=== PATIENT | male | born 1970 | race Caucasian/White ===

== ENCOUNTER 2021-07-10 22:36 | Emergency (ER) | payer MEDICARE ==
[~2021-07-10] VITALS: Ht 170.2 cm; Wt 80.9 kg
[2021-07-10 22:46] VITALS: TEMP 98.5
[2021-07-10] MEDS ORDERED: BACTRIM DS 8001 TAB PO (23:52)
[2021-07-11 00:06] VITALS: BP 232/121; PULSE 87
== END 2021-07-11 00:06 | disposition home or self-care (01) ==
LOC: COL.ER 22:36
DX: L60.0 Ingrowing nail (principal); L03.031 Cellulitis of right toe; I10 Essential (primary) hypertension
CPT/HCPCS: J0696

== ENCOUNTER 2021-08-18 12:22 | Emergency (ER) | payer MEDICARE ==
[~2021-08-18] VITALS: Ht 170.2 cm; Wt 82.3 kg
[~2021-08-18 12:22] MED LIST: BACTRIM DS 8001 TAB PO
[2021-08-18 13:16] LABS: BASO # 0.1 K/mm3 (0.0-0.2); BASO % 0.8 % (0.0-2.0); EOS # 0.1 K/mm3 (0.0-0.7); EOS % 1.1 % (0.0-4.0); GRAN # 6.2 K/mm3 (1.4-6.5); GRAN % 71.3 % (42.2-75.2); HEMATOCRIT 45.9 % (42.0-52.0); HEMOGLOBIN 15.1 g/dl (13.5-18.0); LYMPH # 1.9 K/mm3 (1.2-3.4); LYMPH % 21.7 % (20.0-51.0); MEAN CELL VOLUME 79 fl (80.0-100.0); MEAN CORPUSCULAR HEMOGLOBIN 26 pg (27-31); MEAN CORPUSCULAR HGB CONC 33 g/dl (33.0-37.0); MONO # 0.4 K/mm3 (0.1-0.6); MONO % 4.8 % (1.7-9.3); PLATELET COUNT 313 K/mm3 (130-400); RED BLOOD COUNT 5.82 M/mm3 (4.20-5.60); REDCELL DISTRIBUTION WIDTH-CV 13.7 % (11.5-14.5)
[2021-08-18 13:22] LABS: BILIRUBIN,TOTAL 0.4 mg/dL (0.2-1.2); CALCIUM 8.8 mg/dL (8.4-10.2); CREATININE, serum 1.09 mg/dL (0.72-1.25); POTASSIUM 4.3 mmol/L (3.5-4.5); TOTAL PROTEIN 7.5 gm/dL (6.2-8.1)
[2021-08-18] MEDS ORDERED: REGLAN 10MG10 MG/TAB PO (14:25)
[2021-08-18 14:34] VITALS: BP 148/96; PULSE 90; TEMP 98.6
== END 2021-08-18 14:34 | disposition home or self-care (01) ==
LOC: COL.ER 12:22
PROVIDERS: Emergency Medicine
DX: R11.2 Nausea with vomiting, unspecified (principal); Z90.49 Acquired absence of other specified parts of digestive tract
CPT/HCPCS: J2405; J2765; J7030

== ENCOUNTER 2021-09-11 18:27 | Emergency (ER) | payer MEDICARE ==
[~2021-09-11] VITALS: Ht 170.2 cm; Wt 86.4 kg
[~2021-09-11 18:27] MED LIST changes: +REGLAN 10MG10 MG/TAB PO
[2021-09-11 18:37] VITALS: TEMP 98.4
[2021-09-11] MEDS ORDERED: LYRICA 100MG C100 M1 PO (18:54)
[2021-09-11] MEDS ORDERED: COZAAR 25MG25 MG/TAB PO (18:54)
[2021-09-11] MEDS ORDERED: ULTRAM 50MG TAB50 MG PO (18:54)
[2021-09-11] MEDS ORDERED: LIPITOR 10MG10 MG PO (18:55)
[2021-09-11] MEDS ORDERED: TOUJEO300 U/ML SQ (18:55)
[2021-09-11] MEDS ORDERED: DESYREL DIVIDO150 M1 PO (18:55)
[2021-09-11] MEDS ORDERED: FARXIGA10 PO (18:55)
[2021-09-11 20:43] VITALS: BP 150/94; PULSE 78
--- NOTE | 2021-09-12 08:36 | NUR ---
Attempted to call patient this AM and left message. He was to be here at 0730 for an 0830 appt for food bolus removal. Dr. Winchestert aware of patients non-arrival.
== END 2021-09-11 21:19 | disposition home or self-care (01) ==
LOC: COL.ER 18:27
DX: T18.128A Food in esophagus causing other injury, initial encounter (principal); Z90.49 Acquired absence of other specified parts of digestive tract
CPT/HCPCS: J3360; J7030

== ENCOUNTER → 2021-09-16 | Day surgery (SDC) | payer MEDICARE ==
[~2021-09-16] MED LIST changes: +COZAAR 25MG25 MG/TAB PO; +DESYREL DIVIDO150 M1 PO; +FARXIGA10 PO; +LIPITOR 10MG10 MG PO; +LYRICA 100MG C100 M1 PO; +NOVOLOG FLEX100 U/ML SQ; +PHENERGAN 25 TA25 MG PO; +TOUJEO300 U/ML SQ; +ULTRAM 50MG TAB50 MG PO
--- NOTE | 2021-09-16 08:19 | NUR ---
Patient's blood sugar reading is 370. His blood pressure reads 188/114, then 185/107. He took his full dose of insulin glargine (70 units) this AM, and last had his daily 25 mg cozaar yesterday AM. This information is relayed to Dr. Villa and Cortez Higuera CRNA. They give the verbal order that the patient's procedure will need to be rescheduled. The patient is notified. He expresses frustration, but is understanding. He is waiting to talk with Dr. Villa between cases.
--- NOTE | 2021-09-16 08:54 | NUR ---
Dr. Villa speaks with the patient and he is rescheduled for Tuesday AM. He is discharged at this time.
== END ==
LOC: SDCO 07:50
DX: R13.10 Dysphagia, unspecified (principal); T18.128A Food in esophagus causing other injury, initial encounter; Z53.8 Procedure and treatment not carried out for other reasons
CPT/HCPCS: J2704

== ENCOUNTER 2021-09-18 05:49 | Day surgery (SDC) | payer MEDICARE ==
--- NOTE | 2021-09-16 08:45 | NUR ---
Dr. Villa comes and speaks with the patient at this time.
[~2021-09-18] VITALS: Ht 170.2 cm; Wt 82.3 kg
[~2021-09-18 05:49] MED LIST changes: -NOVOLOG FLEX100 U/ML SQ; -PHENERGAN 25 TA25 MG PO
[2021-09-18 07:20] VITALS: BP 95/60; PULSE 73; TEMP 97.1
--- NOTE | 2021-09-18 07:20 | NUR ---
PATIENT RETURNED TO ROOM 1 VIA CART. ASSISTED TO CHAIR X 2 WITH MINIMAL DIFFICULTY. VITAL SIGNS WNL, HIS 02 SAT IS 92%, HAND OFF NURSE SAID HE WAS AT 94% DURING THE PROCEDURE. HE IS DIABETIC, GLUCOSE IS 87 WHICH IS VERY LOW FOR HIM. HE REQUESTS ORANGE JUICE AND JELLO. FRIEND AT BEDSIDE. WILL CONTINUE TO MONITOR.
[2021-09-18 07:35] VITALS: BP 109/70; PULSE 83
--- NOTE | 2021-09-18 07:35 | NUR ---
PATIENT IS MUCH MORE AWAKE. DOCTOR IS FINISHING UP AT BEDSIDE. VITAL SIGNS HAVE IMPROVED, O2 SAT IS BACK TO BASELINE AT 94%. PATIENT TOLERATED OJ AND JELLO WELL, HE DENIES ANY NAUSEA. WILL CONTINUE TO MONITOR.
[2021-09-18 07:50] VITALS: BP 111/76; PULSE 83
--- NOTE | 2021-09-18 07:50 | NUR ---
PATIENT STATES HE IS READY FOR DISCHARGE. VITAL SIGNS ARE WNL. 02 SAT INCREASED TO 96%. IV DISCONTINUED AT 0745 AND PATIENT IS GETTING DRESSED. FRIEND AT BEDSIDE. DISCHARGE INSTRUCTIONS REVIEWED AND PATIENT EDUCATION GIVEN. WILL CONTINUE TO MONITOR UNTIL DISCHARGE.
[2021-09-18 16:00] VITALS: BP 144/84; PULSE 88; TEMP 96.9
== END 2021-09-18 07:54 | disposition home or self-care (01) ==
LOC: SDCO 05:49
DX: K22.2 Esophageal obstruction (principal); R13.10 Dysphagia, unspecified

== ENCOUNTER → 2021-09-22 | Outpatient (CLI) | payer MEDICARE ==
[~2021-09-22] MED LIST changes: +NOVOLOG FLEX100 U/ML SQ; +PHENERGAN 25 TA25 MG PO
== END ==
LOC: COL.VAS 09-18 10:00
DX: M79.662 Pain in left lower leg (principal)

== ENCOUNTER → 2021-09-23 | Outpatient (CLI) | payer MEDICARE | LOC: COL.RAD 08:20 | DX: K22.2 Esophageal obstruction (principal); T18.128D Food in esophagus causing other injury, subsequent encounter ==

== ENCOUNTER 2021-10-02 10:37 | Day surgery (SDC) | payer MEDICARE ==
[~2021-10-02] VITALS: Ht 170.2 cm; Wt 80.8 kg
[~2021-10-02 10:37] MED LIST changes: -NOVOLOG FLEX100 U/ML SQ; -PHENERGAN 25 TA25 MG PO
[2021-10-02 12:29] VITALS: BP 132/96; PULSE 86; TEMP 97.6
[2021-10-02 14:25] VITALS: BP 95/80; PULSE 84; TEMP 98.5
--- NOTE | 2021-10-02 14:25 | NUR ---
PATIENT TO ROOM 8 VIA CART. ASSIST TO CHAIR X 1. VITAL SIGNS WNL. PATIENT IS C/O SOME NAUSEA, BUT HE WAS NAUSEATED BEFORE THE PROCEDURE WELL. WILL CONTINUE TO MONITOR.
[2021-10-02] MEDS ORDERED: PHENERGAN 25 TA25 MG PO (14:28)
[2021-10-02] MEDS ORDERED: NOVOLOG FLEX100 U/ML SQ (14:29)
--- NOTE | 2021-10-02 14:45 | NUR ---
PATIENT IS AWAKE AND ORIENTED. TOLERATED EATING AND DRINKING WELL. VITAL SIGNS WNL. WAITING FOR DOCTOR TO SPEAK WITH PATIENT. WILL CONTINUE TO MONITOR.
[2021-10-02 14:50] VITALS: BP 136/92; PULSE 103
[2021-10-02 15:05] VITALS: BP 138/94; PULSE 85
--- NOTE | 2021-10-02 15:05 | NUR ---
PATIENT IS READY FOR DISCHARGE. IV REMOVED. VITAL SIGNS WNL. WAITING FOR DOCTOR TO COME IN AND SPEAK WITH HIM. DISCHARGE INSTRUCTIONS REVIEWED. WILL DISCHARGE ONCE DOCTOR SPEAKS WITH PATIENT.
== END 2021-10-02 15:40 | disposition home or self-care (01) ==
LOC: SDCO 10:37
DX: K21.00 Gastro-esophageal reflux disease with esophagitis, without bleeding (principal); Z86.16 Personal history of COVID-19; K22.2 Esophageal obstruction; K44.9 Diaphragmatic hernia without obstruction or gangrene
CPT/HCPCS: C1726; J2704; J3010; J7030

== ENCOUNTER 2021-10-16 22:29 | Emergency (ER) | payer MEDICARE ==
[~2021-10-16] VITALS: Ht 170.2 cm; Wt 80.9 kg
[~2021-10-16 22:29] MED LIST changes: +NOVOLOG FLEX100 U/ML SQ; +PHENERGAN 25 TA25 MG PO
[2021-10-16 22:37] VITALS: TEMP 97.5
[2021-10-16 23:15] LABS: BASO # 0.1 K/mm3 (0.0-0.2); BASO % 0.7 % (0.0-2.0); EOS # 0.1 K/mm3 (0.0-0.7); EOS % 1.4 % (0.0-4.0); GRAN # 4.2 K/mm3 (1.4-6.5); GRAN % 59.9 % (42.2-75.2); HEMATOCRIT 44.1 % (42.0-52.0); HEMOGLOBIN 14.8 g/dl (13.5-18.0); LYMPH # 2.1 K/mm3 (1.2-3.4); LYMPH % 29.8 % (20.0-51.0); MEAN CELL VOLUME 80 fl (80.0-100.0); MEAN CORPUSCULAR HEMOGLOBIN 27 pg (27-31); MEAN CORPUSCULAR HGB CONC 34 g/dl (33.0-37.0); MEAN PLATELET VOLUME 9.6 fl (7.4-10.4); MONO # 0.6 K/mm3 (0.1-0.6); MONO % 8.1 % (1.7-9.3); PLATELET COUNT 238 K/mm3 (130-400); RED BLOOD COUNT 5.51 M/mm3 (4.20-5.60); REDCELL DISTRIBUTION WIDTH-CV 13.9 % (11.5-14.5)
[2021-10-16 23:36] LABS: BILIRUBIN,TOTAL 0.5 mg/dL (0.2-1.2); C-REACTIVE PROTEIN 0.21 mg/dL (0.00-0.50); CALCIUM 9.1 mg/dL (8.4-10.2); CREATININE, serum 0.93 mg/dL (0.72-1.25); TOTAL PROTEIN 7.7 gm/dL (6.2-8.1)
[2021-10-17 00:20] VITALS: BP 158/99; PULSE 84
[2021-10-17] MEDS ORDERED: PHENERGAN 25 TA25 MG PO (00:22)
== END 2021-10-17 00:37 | disposition home or self-care (01) ==
LOC: COL.ER 22:29
PROVIDERS: Emergency Medicine
DX: I10 Essential (primary) hypertension (principal); Z20.822 Contact with and (suspected) exposure to COVID-19
CPT/HCPCS: J1885; J2405; J2550; J7030

== ENCOUNTER 2021-11-01 12:03 | Emergency (ER) | payer MEDICARE ==
[~2021-11-01] VITALS: Ht 170.2 cm; Wt 82.3 kg
[2021-11-01 12:28] VITALS: TEMP 98.7
[2021-11-01 13:35] LABS: BASO # 0.1 K/mm3 (0.0-0.2); BASO % 0.6 % (0.0-2.0); EOS # 0.1 K/mm3 (0.0-0.7); EOS % 0.6 % (0.0-4.0); GRAN # 5.5 K/mm3 (1.4-6.5); GRAN % 67.2 % (42.2-75.2); HEMOGLOBIN 15.2 g/dl (13.5-18.0); LYMPH # 2.1 K/mm3 (1.2-3.4); LYMPH % 25.2 % (20.0-51.0); MEAN CELL VOLUME 81 fl (80.0-100.0); MEAN CORPUSCULAR HEMOGLOBIN 27 pg (27-31); MEAN CORPUSCULAR HGB CONC 33 g/dl (33.0-37.0); MEAN PLATELET VOLUME 9.8 fl (7.4-10.4); MONO # 0.5 K/mm3 (0.1-0.6); MONO % 6.2 % (1.7-9.3); PLATELET COUNT 286 K/mm3 (130-400); RED BLOOD COUNT 5.68 M/mm3 (4.20-5.60)
[2021-11-01 13:51] LABS: ALANINE AMINOTRANSFERASE 32 U/L (0-55); ALKALINE PHOSPHATASE 120 U/L (40-150); ANION GAP 12 mmol/L (7-16); AST,SGOT 19 U/L (5-34); BILIRUBIN,TOTAL 0.7 mg/dL (0.2-1.2); BLOOD UREA NITROGEN 9 mg/dL (8-26); CALCIUM 9.4 mg/dL (8.4-10.2); CARBON DIOXIDE 25 mmol/L (22-29); CHLORIDE 103 mmol/L (98-107); CREATININE, serum 0.98 mg/dL (0.72-1.25); GLUCOSE 126 mg/dL (70-99); LIPASE 29 U/L (8-78); POTASSIUM 4.4 mmol/L (3.5-4.5); SODIUM 140 mmol/L (136-145); TOTAL PROTEIN 7.7 gm/dL (6.2-8.1)
[2021-11-01 14:01] LABS: TROPONIN-I < 0.010 ng/mL (0.00-0.033)
[2021-11-01 14:41] VITALS: BP 196/110; PULSE 88
== END 2021-11-01 14:44 | disposition home or self-care (01) ==
LOC: COL.ER 12:03
PROVIDERS: Emergency Medicine
DX: R11.2 Nausea with vomiting, unspecified (principal); R10.84 Generalized abdominal pain; E11.9 Type 2 diabetes mellitus without complications; Z20.822 Contact with and (suspected) exposure to COVID-19; Z90.49 Acquired absence of other specified parts of digestive tract; Z87.19 Personal history of other diseases of the digestive system; Z79.4 Long term (current) use of insulin
CPT/HCPCS: J2765; J7030

== ENCOUNTER 2021-11-06 13:14 | Day surgery (SDC) | payer MEDICARE ==
[~2021-11-06] VITALS: Ht 170.2 cm; Wt 82.2 kg
[2021-11-06 15:50] VITALS: BP 70/47; PULSE 85
[2021-11-06 15:52] VITALS: BP 220/122; PULSE 112; TEMP 98.2
[2021-11-06 16:00] VITALS: BP 90/77; PULSE 91
[2021-11-06 16:15] VITALS: BP 140/66; PULSE 87
[2021-11-06 16:30] VITALS: BP 138/88; PULSE 94
--- NOTE | 2021-11-06 17:09 | NUR ---
1550: Patient brought into restroom by QUIN Degroot. Patient up to toliet and states he doesn't feel well. Patient brought back on cart via 2 assist. Patient then brought back into bay 2. Patient awake and alert. Denies pain or nausea. States he feels like he needs to poop. Vital signs taken. 1555: MD in to see patient. 1600: Bedside commode brought into patient room. Patient got over to commode via stand by assist. Denies dizziness or lightheaded. 1615: Patient tolerating food and drink well. Denies pain or nausea. Vital signs stable on room air. 1620: Attempted to contact ride. [employer] states they will be here after 1700. 1630: Patient tolerating food and drink well. Denies pain or nausea. Vital signs stable on room air. 1640: Patient meets discharge criteria. IV removed without complications. Went through discharge instructions with patient. Questions answered. 1700: Patient got dressed and escorted to the patient entrance via wheelchair. Patient using [employer] [facility]. Denies need to have RN wait with him. Educated patient on safety. Patient still refused. Patient instructed to let admissions know if something came up.
== END 2021-11-06 17:04 | disposition home or self-care (01) ==
LOC: SDCO 13:14
DX: K22.2 Esophageal obstruction (principal); K22.70 Barrett's esophagus without dysplasia; Z86.16 Personal history of COVID-19
CPT/HCPCS: C1726; J0360; J2704; J3301; J7030

== ENCOUNTER 2021-11-12 13:11 | Emergency (ER) | payer MEDICARE ==
[~2021-11-12] VITALS: Ht 170.2 cm; Wt 81.8 kg
[2021-11-12 13:20] VITALS: TEMP 98.3
[2021-11-12 14:31] LABS: BASO # 0.1 K/mm3 (0.0-0.2); BASO % 0.6 % (0.0-2.0); EOS # 0.1 K/mm3 (0.0-0.7); EOS % 0.6 % (0.0-4.0); GRAN # 5.9 K/mm3 (1.4-6.5); GRAN % 71.6 % (42.2-75.2); HEMATOCRIT 45.7 % (42.0-52.0); HEMOGLOBIN 15.3 g/dl (13.5-18.0); LYMPH # 1.8 K/mm3 (1.2-3.4); LYMPH % 21.2 % (20.0-51.0); MEAN CELL VOLUME 81 fl (80.0-100.0); MEAN CORPUSCULAR HEMOGLOBIN 27 pg (27-31); MEAN CORPUSCULAR HGB CONC 34 g/dl (33.0-37.0); MEAN PLATELET VOLUME 9.9 fl (7.4-10.4); MONO # 0.5 K/mm3 (0.1-0.6); MONO % 5.9 % (1.7-9.3); PLATELET COUNT 285 K/mm3 (130-400); RED BLOOD COUNT 5.66 M/mm3 (4.20-5.60); REDCELL DISTRIBUTION WIDTH-CV 13.4 % (11.5-14.5)
[2021-11-12 14:47] LABS: ALANINE AMINOTRANSFERASE 22 U/L (0-55); ALBUMIN 4.1 gm/dL (3.5-5.0); ALKALINE PHOSPHATASE 122 U/L (40-150); ANION GAP 11 mmol/L (7-16); AST,SGOT 17 U/L (5-34); BILIRUBIN,TOTAL 0.5 mg/dL (0.2-1.2); BLOOD UREA NITROGEN 10 mg/dL (8-26); CALCIUM 9.4 mg/dL (8.4-10.2); CARBON DIOXIDE 23 mmol/L (22-29); CHLORIDE 108 mmol/L (98-107); CREATININE, serum 1.01 mg/dL (0.72-1.25); GLUCOSE 128 mg/dL (70-99); LIPASE 28 U/L (8-78); POTASSIUM 4.5 mmol/L (3.5-4.5); SODIUM 142 mmol/L (136-145); TOTAL PROTEIN 7.7 gm/dL (6.2-8.1)
[2021-11-12 14:50] LABS: ALCOHOL(ethanol),MEDICAL < 10 mg/dL (0-10)
[2021-11-12 15:30] LABS: COLLECTION METHOD CLEAN CATCH
[2021-11-12 15:39] LABS: MUCOUS Present (NOT PRESENT); PH 6 (5-8); SQUAMOUS EPITHELIAL None Seen /hpf (0-10); URINE APPEARANCE Clear (CLEAR/HAZY); URINE BACTERIA None Seen /hpf (NONE SEEN); URINE BLOOD Negative (NEGATIVE); URINE COLOR Yellow (YELLOW); URINE GLUCOSE 3+ (NEGATIVE); URINE KETONE Trace (NEGATIVE); URINE NITRATE Negative (NEGATIVE); URINE PROTEIN(semi-quant) 1+ (NEGATIVE); URINE UROBILINOGEN Negative (NEGATIVE)
[2021-11-12 15:50] LABS: TRICYCLIC ANTIDEPRESS URINE NEGATIVE
[2021-11-12 17:42] VITALS: BP 180/110
[2021-11-12] MEDS ORDERED: REGLAN 10MG10 MG/TAB PO (17:51)
[2021-11-12 17:59] VITALS: PULSE 85
== END 2021-11-12 17:59 | disposition home or self-care (01) ==
LOC: COL.ER 13:11
PROVIDERS: Emergency Medicine
DX: E11.9 Type 2 diabetes mellitus without complications (principal); K57.30 Diverticulosis of large intestine without perforation or abscess without bleeding; R51.9 Headache, unspecified; Z86.69 Personal history of other diseases of the nervous system and sense organs; Z90.49 Acquired absence of other specified parts of digestive tract
CPT/HCPCS: J1200; J1885; J2405; J2550; J7030; Q9967

== ENCOUNTER 2021-11-16 07:19 | Emergency (ER) | payer MEDICARE ==
[~2021-11-16] VITALS: Ht 170.2 cm; Wt 82.3 kg
[2021-11-16 07:37] VITALS: TEMP 97.6
[2021-11-16 08:03] LABS: BASO # 0.1 K/mm3 (0.0-0.2); BASO % 0.7 % (0.0-2.0); EOS # 0.1 K/mm3 (0.0-0.7); EOS % 1.2 % (0.0-4.0); GRAN # 6.8 K/mm3 (1.4-6.5); GRAN % 75.3 % (42.2-75.2); HEMATOCRIT 49.9 % (42.0-52.0); HEMOGLOBIN 16.9 g/dl (13.5-18.0); LYMPH # 1.6 K/mm3 (1.2-3.4); LYMPH % 17.1 % (20.0-51.0); MEAN CELL VOLUME 80 fl (80.0-100.0); MEAN CORPUSCULAR HEMOGLOBIN 27 pg (27-31); MEAN CORPUSCULAR HGB CONC 34 g/dl (33.0-37.0); MEAN PLATELET VOLUME 9.4 fl (7.4-10.4); MONO # 0.5 K/mm3 (0.1-0.6); MONO % 5.3 % (1.7-9.3); PLATELET COUNT 316 K/mm3 (130-400); RED BLOOD COUNT 6.24 M/mm3 (4.20-5.60); REDCELL DISTRIBUTION WIDTH-CV 13.2 % (11.5-14.5)
[2021-11-16 08:23] LABS: ALBUMIN 4.4 gm/dL (3.5-5.0); BILIRUBIN,TOTAL 0.6 mg/dL (0.2-1.2); CALCIUM 9.7 mg/dL (8.4-10.2); CREATININE, serum 1.04 mg/dL (0.72-1.25); POTASSIUM 4.2 mmol/L (3.5-4.5); TOTAL PROTEIN 8.2 gm/dL (6.2-8.1)
[2021-11-16] MEDS ORDERED: PROMETHAZINE12.5 M5 PO (09:48)
[2021-11-16 09:57] VITALS: BP 192/96; PULSE 99
== END 2021-11-16 09:57 | disposition home or self-care (01) ==
LOC: COL.ER 07:19
PROVIDERS: Emergency Medicine
DX: R11.2 Nausea with vomiting, unspecified (principal)
CPT/HCPCS: J1790; J2550; J7030

== ENCOUNTER 2021-11-21 01:38 | Emergency (ER) | payer MEDICARE ==
[~2021-11-21] VITALS: Ht 170.2 cm; Wt 82.3 kg
[~2021-11-21 01:38] MED LIST changes: +PROMETHAZINE12.5 M5 PO
[2021-11-21 03:29] VITALS: BP 180/93; PULSE 79; TEMP 98.4
== END 2021-11-21 03:29 | disposition home or self-care (01) ==
LOC: COL.ER 01:38
DX: R06.6 Hiccough (principal); R10.13 Epigastric pain

== ENCOUNTER 2021-11-21 04:02 | Emergency (ER) | payer MEDICARE ==
[~2021-11-21] VITALS: Ht 170.2 cm; Wt 82.3 kg
[2021-11-21 05:33] VITALS: BP 182/89; PULSE 81; TEMP 98.6
== END 2021-11-21 05:33 | disposition home or self-care (01) ==
LOC: COL.ER 04:02
DX: R06.6 Hiccough (principal); Z88.8 Allergy status to other drugs, medicaments and biological substances
CPT/HCPCS: J3230

== ENCOUNTER 2021-11-27 07:17 | Day surgery (SDC) | payer MEDICARE ==
[~2021-11-27] VITALS: Ht 170.2 cm; Wt 82.9 kg
[2021-11-27 08:14] VITALS: BP 162/92; PULSE 79; TEMP 98
[2021-11-27 09:20] VITALS: BP 146/84; PULSE 77; TEMP 97.5
[2021-11-27 09:35] VITALS: BP 152/86; PULSE 82
[2021-11-27 09:50] VITALS: BP 182/95; PULSE 90
--- NOTE | 2021-11-27 14:28 | NUR ---
0920 PT RETURNED TO [facility] VIA CART. TRANSFERRED TO CHAIR WITH RN ASSIST. ALERT AND ORIENTED. MONITORS ATTACHED, INTERVALS AND ALARMS SET. VSS. PT DENIES PAIN OR NAUSEA. FOOD AND DRINK PROVIDED. CALL LIGHT IN REACH. PT TO RECIEVED 200 ML ADDITIONAL D5 1/2 AND RETAKE BLOOD GLUCOSE. 0935 VSS. PT DENIES DISCOMFORT. TOLERATING FOOD AND DRINK WELL. BG 174. rIDE CALLED. 0950 BP ELEVATED. PT STATES HOME MEDS FOR BP WERE NOT TAKEN YET TODAY. PT STATES THAT BLOOD PRESSURES HAVE BEEN ABNORMAL AT HOME AND HE HAS AN APPOINTMENT SCHEDULED TO ADDRESS BP ISSUES. ENCOURAGED PT TO GO STRAIGHT HOME AND HOME MEDS AND TO KEEP UPCOMING APPOINTMENT WITH PCM. OK TO D/C PER DR. CHAPARRO. PT DENIES DISCOMFORT. REVIEWED DISCHARGE INSTRUCTIONS AND EDUCATION MATERIAL, ANSWERED ALL QUESTIONS. IV REMOVED WITHOUT COMPLICATIONS. PT ALLOWED TO DRESS. 1003 TRANSFERRED PT VIA WHEELCHAIR TO PERSONAL VEHICLE TO BE DRIVEN HOME BY GIRLFRIEND.
== END 2021-11-27 10:00 | disposition home or self-care (01) ==
LOC: SDCO 07:17
DX: K22.2 Esophageal obstruction (principal); K22.70 Barrett's esophagus without dysplasia; E11.42 Type 2 diabetes mellitus with diabetic polyneuropathy; Z79.84 Long term (current) use of oral hypoglycemic drugs; Z79.4 Long term (current) use of insulin
CPT/HCPCS: C1726; J2704; J3301; J7030